=== PATIENT | female | born 1995 | race Caucasian/White ===

== ENCOUNTER 2025-02-02 23:14 | Emergency (ER) | payer MEDICAID, SELFPAY ==
[2025-02-02 23:20] VITALS: BP 115/79; PULSE 97; RESP 18; TEMP 36.7; O2SAT 99
--- NOTE | 2025-02-02 23:30 | PD.EDMEDCL ---
ED Medical Clearance RME/HPI General Chief complaint: Medical Clearance Stated complaint: [facility] CLEARANCE Time Seen by Provider: 02/02/25 23:26 Arrival date/time: 02/02/25 23:14 RME / HPI RME / HPI Narrative: Dr. Holloway?[facility] Main ED Evaluation: 29yo female CONSTANTINO VALERA presents to the ED for a medical clearance. Patient endorsed to [facility] staff that she is 8 weeks , so she nneded to come in for medical clearance. Patient does not have any medical complaints at this time. Denies headache, dizziness, N/V, abdominal pain, vaginal bleeding or any other associated symptoms. Review of Systems Review of Systems Systems Reviewed: All systems reviewed, normal except as documented ED Exam Narrative Physical exam: Generally patient is alert and in no obvious distress, heart regular rate and rhythm, lungs clear to auscultation equal bilaterally, abdomen soft nondistended nontender without a palpable uterine fundus. Neurologic exam shows [place] Coma Scale of 15 without focal motor deficit. No ataxia. Course Quality Measures none Medical Clearance MDM Narrative [facility] Narrative:: Scribe Attestation: 02/02/25 - Haydee Fields am scribing for and in the presence of Dr. Holloway. Patient states that she is 8 weeks . She denies vaginal bleeding or pain. On physical exam the fundus of the uterus cannot be palpated. Patient is medically clear for [facility] facility. Patient data External records reviewed:: [facility] previous records (Per chart review, patient has no previous ED visits or admissions to this facility.) Clinical information provided by:: patient and law enforcement Social determinants that could affect healthcare access:: none Patient has the following chronic illnesses:: none How is presenting disease/condition affected by chronic disease/condition?: no chronic disease Evaluation data The following diagnostics were reviewed and interpreted by me:: other (specify) (none) Lab and/or radiology exams considered but not ordered:: none Interpretation Summary: none Medications / Prescriptions Medications or Prescriptions considered but not ordered:: none Medication administrations:: none Consultations Consultation(s) initiated? (list below): No Diagnosis Medical Clearance Differential Diagnosis: other (See MDM) Most likely diagnosis given after review of the tests above:: see clinical impression below Admission Indicated Admission indicated?: not indicated Admission Request Was there a request for admission?: No Disposition Plan Disposition Plan: Discharge Discharge Attestation Discharge Attestation: The patient and all family members were given an opportunity to ask questions and understood the discharge instructions. Discharge instructions specifically effects, indications for sooner follow up or return to the emergency department, and the expected course of current diagnosis. Patient condition: Stable Discharge Plan Plan Patient Disposition: Residential/Court/Law Problem List Clinical Impression: Medical clearance for incarceration Patient/Caregiver Discharge Instructions Additional Instructions: Patient is medically clear for [facility] facility. Print Language: Wolof
[2025-02-02 23:41] VITALS: BP 134/70; PULSE 88; RESP 19; TEMP 37.2; O2SAT 99; BMI 20.1
== END 2025-02-02 23:42 ==
LOC: SERX 02-03 00:40
PROVIDERS: Emergency Provider Emergency Medicine
DX: Z02.89 Encounter for other administrative examinations (principal); Z34.01 Encounter for supervision of normal first pregnancy, first trimester; Z3A.08 8 weeks gestation of pregnancy
CPT/HCPCS: 99281